=== PATIENT | male | born 1995 | race Caucasian/White ===

== ENCOUNTER 2021-09-24 18:19 | Emergency (ER) | payer OTHER ==
[~2021-09-24] VITALS: Ht 175.3 cm; Wt 106.6 kg
[2021-09-24 18:52] VITALS: BP_SYST 124
[2021-09-24] MEDS ORDERED: ACETAMINOPHEN 500 MG TABLET ONE (18:58)
[2021-09-24] MEDS ORDERED: ACETAMINOPHEN 500 MG TABLET PO ONE (19:00)
--- NOTE | 2021-09-24 19:06 | NUR ---
Placed in TENT FOR EXAMINATION. . SBAR Report given to TAMIR GOODEN
[2021-09-24] MEDS ORDERED: predniSONE 20 MG TABLET PO ONE (20:30)
[2021-09-24] MEDS ORDERED: ALBMDI INH ×3 (20:40→20:45)
--- NOTE | 2021-09-24 20:43 | NUR ---
assessed pt. pt brought in from home by with complaint of fever and headache/pt tested pos for covid. pt o2 sat is at 99 with no abnormal breathing. pt did complain of headache of 10/10. will continue to monitor
[2021-09-24] MEDS ORDERED: MONT-40 PO (20:45)
[2021-09-24] MEDS ORDERED: PRED20TA PO (20:45)
[2021-09-24] MEDS ORDERED: IBUPROFEN 600 MG TABLET PO ONE (21:00)
[2021-09-24] MEDS ORDERED: ALBUTEROL MDI INHALATION 8 GM INH INH ONE (21:00)
--- NOTE | 2021-09-24 21:04 | NUR ---
Patient given written and verbal discharge instructions and verbalizes understanding. ER MD discussed with patient the results and treatment provided. Patient in stable condition. ID arm band removed. IV catheter removed intact and dressing applied, no active bleeding. Rx of ALBUTEROL MDI, MONTELUKAST SODIUM, PREDNISONE given. Patient educated on pain management and to follow up with PMD. Pain Scale . Opportunity for questions provided and answered. Medication side effect fact sheet provided.
--- NOTE | 2021-09-24 21:19 | NUR ---
PT CAME IN WALKING FROM HOME WITH COMPLAINT OF COUGH/COLD SINCE MONDAY, PT WAS NON FEBRILE, O2 SAT OF 96. DENIES ANY PAIN VS ARE WITHIN NORMAL LIMITS. PT IS SITTING OUTSIDE IN TENT WILL CONTINUE TO ASSESS
[2021-09-24 21:35] VITALS: BP_SYST 109
== END 2021-09-24 21:19 | disposition home or self-care (01) ==
LOC: SED 18:19
DX: U07.1 COVID-19 (principal); J45.901 Unspecified asthma with (acute) exacerbation; R05.9 Cough, unspecified; R50.9 Fever, unspecified; R06.02 Shortness of breath; Z88.1 Allergy status to other antibiotic agents; Z79.899 Other long term (current) drug therapy
CPT/HCPCS: 99284; J7512